=== PATIENT | female | born 1990 | race Asian ===

== ENCOUNTER 2016-10-25 15:17 | Emergency (ER) | payer OTHER ==
[~2016-10-25] VITALS: Ht 162.6 cm; Wt 137.3 kg
[2016-10-25 15:18] VITALS: BP 136/98
[2016-10-25] MEDS ORDERED: FAMOTIDINE 20 MG TABLET ONE (15:40)
[2016-10-25 15:54] LABS: HEMOGLOBIN 14.6 g/dL (11.7-16.4)
[2016-10-25] MEDS ORDERED: FAMOTIDINE 20 MG TABLET PO ONE (16:00)
[2016-10-25 16:03] LABS: BLOOD UREA NITROGEN 16 mg/dL (7-18)
== END 2016-10-25 16:18 | disposition home or self-care (01) ==
LOC: ED 16:16
DX: L50.0 Allergic urticaria (principal)
CPT/HCPCS: 36415; 80048; 82040; 85025; 99284; J7512; Q0177

== ENCOUNTER 2018-01-31 21:21 | Emergency (ER) | payer OTHER ==
[~2018-01-31] VITALS: Ht 165.1 cm; Wt 132.0 kg
[2018-01-31 21:28] VITALS: BP 140/95
[2018-01-31] MEDS ORDERED: KETOROLAC 30 MG/1 ML IM ONE (23:00)
[2018-01-31] MEDS ORDERED: KETOROLAC 30 MG/1 ML ONE (23:04)
== END 2018-01-31 23:39 | disposition home or self-care (01) ==
LOC: ED 23:24
DX: S29.012A Strain of muscle and tendon of back wall of thorax, initial encounter (principal); X58.XXXA Exposure to other specified factors, initial encounter; Y93.89 Activity, other specified; Y99.8 Other external cause status; Y92.89 Other specified places as the place of occurrence of the external cause
CPT/HCPCS: 96372; 99283; J1885

== ENCOUNTER 2021-02-19 09:27 | Emergency (ER) | payer BC, OTHER ==
[~2021-02-19] VITALS: Ht 165.1 cm; Wt 123.1 kg
--- NOTE | 2021-02-19 09:46 | NUR ---
assumed care of pt. attempted to enter room to assess pt, pt in BR
--- NOTE | 2021-02-19 09:55 | NUR ---
pt here c/o non-produtive cough that causes epigastric pain that started yesterday. pt also has general malaise. pt states that she went to work today and left to come here for evaluation. pt has not had a COVID vaccine. denies recent known sick contacts no family at bedside EKG at bedside
[2021-02-19] MEDS ORDERED: MAALOX/HYOSCYAMINE/LIDOCAINE 45 ML BTL PO ONE (10:00)
--- NOTE | 2021-02-19 10:00 | NUR ---
Iso precauions in place
--- NOTE | 2021-02-19 10:09 | NUR ---
CXR at bedside
[2021-02-19] MEDS ORDERED: MAALOX/HYOSCYAMINE/LIDOCAINE 45 ML BTL ONE (10:17)
[2021-02-19 11:05] VITALS: BP 125/77
--- NOTE | 2021-02-19 11:05 | NUR ---
patient reports feeling better after meds. chart up for MD recheck
--- NOTE | 2021-02-19 11:27 | NUR ---
his patient was D/C by another RN
--- NOTE | 2021-02-19 11:29 | NUR ---
CARE FOR DC ONLY PROVIDED. NO ACUTE DISTRESS NOTED. NO IV TO DC. REVIEWED DC INSTRUCTIONS WITH PT. PT VERBALIZED. UNDERSTANDING. PT LEFT AMB, GAIT STEADY.
== END 2021-02-19 11:32 | disposition home or self-care (01) ==
LOC: ED 10:21
DX: B34.9 Viral infection, unspecified (principal); Z20.822 Contact with and (suspected) exposure to COVID-19; K29.00 Acute gastritis without bleeding; R05 Cough; R94.31 Abnormal electrocardiogram [ECG] [EKG]
CPT/HCPCS: 71045; 93005; 99285; U0003; U0005